=== PATIENT | male | born 1990 | race Caucasian/White ===

== ENCOUNTER 2017-06-14 07:05 | Day surgery (SDC) | payer BC ==
[2017-06-09 10:56] VITALS: BP 166/89
[~2017-06-14] VITALS: Ht 185.4 cm; Wt 155.7 kg
[~2017-06-14 07:05] MED LIST: CITA20TA9 PO; EPINEPHRINE 1 MG/ML, 1ML ONE; IBUP-1223 PO; LIDOCAINE/PF 1%, 30ML ONE; METH750T87 PO; ROPIvacaine/PF 0.5%, 30 ML ONE; TEMA15CA PO
[2017-06-14] MEDS ORDERED: LACTATED RINGERS 1,000 ML IV SCH (07:43)
[2017-06-14] MEDS ORDERED: OXYC-302 PO (07:45)
[2017-06-14] MEDS ORDERED: LIDOCAINE 1%, 2ML ONE (07:46)
[2017-06-14 07:47] VITALS: BP 166/89
[2017-06-14] MEDS ORDERED: LIDOCAINE 1%, 2ML SQ PRN (08:00)
[2017-06-14] MEDS ORDERED: PROPOFOL 10 MG/ML, 20ML ONE (08:25)
[2017-06-14] MEDS ORDERED: METOCLOPRAMIDE 5 MG/ML, 2ML ONE (08:25)
[2017-06-14] MEDS ORDERED: KETOROLAC 30 MG/1 ML ONE (08:25)
[2017-06-14] MEDS ORDERED: ONDANSETRON 2MG/ML, 2ML ONE (08:25)
[2017-06-14] MEDS ORDERED: DEXAMETHASONE 4 MG/ML, 1ML ONE (08:25)
[2017-06-14] MEDS ORDERED: CEFAZOLIN 1,000 MG ONE (08:25)
[2017-06-14] MEDS ORDERED: FENTANYL PF 100 MCG/2ML ONE (08:37)
[2017-06-14] MEDS ORDERED: ONDANSETRON 2MG/ML, 2ML IVPush PRN (09:00)
[2017-06-14] MEDS ORDERED: OXYcodone 5 MG/5 ML ORAL.SOL UDC PO PRN (09:00)
[2017-06-14] MEDS ORDERED: FENTANYL PF 100 MCG/2ML IV PRN (09:00)
[2017-06-14] MEDS ORDERED: HYDROmorphone 1 MG/ML, 1ML IV PRN (09:00)
[2017-06-14] MEDS ORDERED: MIDAZOLAM 1 MG/ML, 2ML IV PRN (09:00)
[2017-06-14] MEDS ORDERED: PROMETHAZINE 25 MG/ML, 1ML IV PRN (09:00)
[2017-06-14] MEDS ORDERED: MEPERIDINE/PF 25MG/0.5ML IVPush PRN (09:00)
[2017-06-14] MEDS ORDERED: hydrALAzine 20 MG/ML, 1ML IV PRN (09:00)
[2017-06-14] MEDS ORDERED: LABETALOL 5MG/ML, 20ML IV PRN (09:00)
[2017-06-14] MEDS ORDERED: OXYcodone 5 MG/5 ML ORAL.SOL UDC ONE (09:27)
== END 2017-06-14 11:15 ==
LOC: OUT 07:05
PROVIDERS: ATTEND Orthopaedic Surgery
DX: S83.281A Other tear of lateral meniscus, current injury, right knee, initial encounter (principal); M94.261 Chondromalacia, right knee; X58.XXXA Exposure to other specified factors, initial encounter; Y93.89 Activity, other specified; Y92.89 Other specified places as the place of occurrence of the external cause; Y99.8 Other external cause status; Z87.39 Personal history of other diseases of the musculoskeletal system and connective tissue
CPT/HCPCS: 29879; 29881; J0171; J0690; J1100; J1885; J2405; J2704; J2765; J2795; J3010; J3490; J7120